=== PATIENT | male | born 1980 | race Caucasian/White ===

== ENCOUNTER 2018-05-19 18:48 | Emergency (ER) | payer OTHER ==
[~2018-05-19] VITALS: Ht 182.9 cm; Wt 108.0 kg
[2018-05-19 18:57] VITALS: Ht 182.9 cm; Wt 108.0 kg
[2018-05-19 20:55] VITALS: BP 144/96
== END 2018-05-19 20:55 | disposition home or self-care (01) ==
LOC: ED 18:48
DX: S62.101A Fracture of unspecified carpal bone, right wrist, initial encounter for closed fracture (principal); W22.8XXA Striking against or struck by other objects, initial encounter; Y93.89 Activity, other specified; Y92.89 Other specified places as the place of occurrence of the external cause; Y99.8 Other external cause status